=== PATIENT | male | born 1945 | race Caucasian/White ===

== ENCOUNTER 2018-03-04 07:57 | Day surgery (SDC) | payer MEDICARE ==
--- NOTE | 2018-02-16 16:16 | HP ---
CC: Dr. Facundo Paulson * ADMITTING HISTORY AND PHYSICAL: DATE OF ADMISSION: 03/04/18 ADMITTING DIAGNOSES: 1. Hematuria. 2. Multiple large bladder calculi. PLANNED PROCEDURE: Cystoscopy, fragmentation, and removal of bladder calculi, possible laser. SURGEON: Dr. Harvey. HISTORY OF PRESENT ILLNESS: Rene Thompson is a 72-year-old gentleman, who has had episodes of gross hematuria off and on for the last 2 years. He was evaluated and on cystoscopy was noted to have a markedly enlarged prostate especially the median lobe. In the bladder, he had multiple large bladder calculi, probably 8 to 10 in number. Because of the extremely large stone burden, I have explained to him that he may require 2 sessions to completely rid the bladder of stones. He is now being brought in for fragmentation and removal of the bladder calculi. I have also started him on Proscar 5 mg a day to try to reduce the prostate size. PAST MEDICAL HISTORY: Significant for: 1. Ulcerative colitis. 2. Diabetes mellitus. 3. Erectile dysfunction. PAST SURGICAL HISTORY: Significant for tonsillectomy. MEDICATIONS ON ADMISSION: 1. Metformin 500 mg daily. 2. Cialis 5 mg every other day. 3. Lisinopril/hydrochlorothiazide 10/12.5 one tablet daily. 4. Lialda 1.2 g 2 tablets daily. 5. Vitamins and supplements. 6. In addition, he is now on finasteride 5 mg daily. ALLERGIES: No known drug allergies. SOCIAL HISTORY: Smoking history: He is a former smoker, who quit in 1979 with a 70-khtk-ehbe smoking history. REVIEW OF SYSTEMS: He denies any chest pain or shortness of breath. He is still fairly active. PHYSICAL EXAMINATION GENERAL: Reveals a pleasant, healthy-appearing gentleman. VITAL SIGNS: Blood pressure is 112/70, pulse 90 per minute and regular, oxygen saturation 97% on room air. LUNGS: Clear bilaterally. CARDIOVASCULAR: Regular rate and rhythm. S1, S2. ABDOMEN: Soft without masses. IMPRESSION: A 72-year-old gentleman with multiple large bladder calculi. PLAN: The planned procedure is cystoscopy, fragmentation and removal of bladder calculi and possible laser. Because of the large stone burden, he may require this to be a staged procedure with removal of some of the calculi on this occasion and possibly a repeat in 3 to 4 weeks if needed. [id number]/CPS #: [id number] [facility]ENTERJadyn
[~2018-03-04 07:57] MED LIST: Buffered Lidocaine 0.9% SYRIN* 5 ML/SYR SYRINGE INTRADERM ONE; Gentamicin ADULT (*) 160 MG in NS 0.9% 100 ML* 100 ML IVPB ONE; cefTRIAXone(*) 2 GM ADDV.VIAL IVPB ONE
[2018-03-04] MEDS ORDERED: Famotidine IV* 10 MG/ML 2 ML (20 mg) ONE (08:12)
[2018-03-04] MEDS ORDERED: Midazolam* 1 MG/ML 2 ML VIAL (2 MG) ONE (08:12)
[2018-03-04] MEDS ORDERED: fentaNYL* 50 MCG/ML 2 ML VIAL (100 MCG VIAL) ONE (08:12)
[2018-03-04] MEDS ORDERED: Lidocaine 2% PF * 5 ML VIAL ONE (09:14)
[2018-03-04] MEDS ORDERED: Ketorolac INJ* 30 MG/ML 1 ML VIAL ONE (09:16)
[2018-03-04] MEDS ORDERED: Dexamethasone IV* 4 MG/ML 1 ML (4 MG) ONE (09:16)
[2018-03-04] MEDS ORDERED: Propofol* 10 MG/ML 20 ML BTL IV PUSH ONE (09:16)
[2018-03-04] MEDS ORDERED: HYDROmorphone INJ* 0.5 MG/0.5 ML SYRINGE IV PRN (09:37)
[2018-03-04] MEDS ORDERED: Ondansetron INJ* 2 MG/ML VIAL IV PRN (09:37)
[2018-03-04] MEDS ORDERED: DiMENhydriNATE IV* 50 MG/ML VIAL IV PUSH PRN (09:37)
[2018-03-04] MEDS ORDERED: Acetaminophen TAB* 325 MG PO PRN (09:37)
[2018-03-04] MEDS ORDERED: diPHENhydraMINE IV* 50 MG/ML 1 ml VIAL (BENADRYL) IV PRN (09:37)
[2018-03-04] MEDS ORDERED: Nalbuphine* 10 MG/ML 1 ML VIAL IV PRN (09:37)
[2018-03-04] MEDS ORDERED: Naloxone* 0.4 MG/ML 1 ML VIAL IV PRN (09:37)
[2018-03-04] MEDS ORDERED: HYDROcodone/ACETAMIN 5-325 MG* 1 TAB PO PRN ×2 (09:37)
[2018-03-04] MEDS ORDERED: PROCHLORPERAZINE INJ 5 MG/ML 2 ML VIAL IV PRN (09:37)
[2018-03-04] MEDS ORDERED: fentaNYL* 50 MCG/ML 2 ML VIAL (100 MCG VIAL) IV PRN (09:37)
[2018-03-04] MEDS ORDERED: Furosemide IV* 10 MG/ML 2 ML VIAL (20 MG) ONE ×2 (10:03→10:57)
[2018-03-04] MEDS ORDERED: oxyCODONE/Acetamin 5/325 MG* TAB ONE (11:16)
[2018-03-04 13:51] VITALS: BP 138/96
--- NOTE | 2018-03-05 04:24 | OP ---
CC: Dr. Facundo Paulson * DATE OF OPERATION: 03/04/18 - [facility] DATE OF : 49 SURGEON: Bry Harvey MD ANESTHESIOLOGIST: Dr. Martínez ANESTHESIA: General. PRE-OP DIAGNOSES: 1. Multiple large bladder calculi. 2. Prostate enlargement. POST-OP DIAGNOSES: 1. Multiple large bladder calculi. 2. Prostate enlargement. OPERATIVE PROCEDURE: 1. Cystoscopy. 2. Laser lithotripsy of bladder calculi and fragmentation and removal of bladder calculi. COMPLICATIONS: None. OPERATIVE FINDINGS: 1. Markedly enlarged prostate. 2. Multiple large bladder calculi. CATHETER: 22-[place] Wren. BLOOD LOSS: Approximately less than 50 cc. POSTOPERATIVE CONDITION: Stable. INDICATIONS: Rene Thompson is a 72-year-old gentleman who was evaluated and noted to have multiple large bladder calculi. He is now being brought in for treatment of the same. DESCRIPTION OF PROCEDURE: After induction of general anesthesia, the patient was placed in dorsal lithotomy position. Sequential compression devices were in place and functioning. Initial cystoscopy revealed mild stricture at the urethral meatus, which was carefully dilated. The remainder of the urethra was unremarkable. The prostate was markedly enlarged, especially the median lobe. The bladder was examined. It was difficult to visualize the bladder mucosa because of the presence of multiple large bladder calculi. Using the 1000 micron holmium laser fiber, a lot of the larger stones were fragmented with laser lithotripsy. Next, the stone crushing forceps was introduced and a lot of the additional stones and the pieces of the larger stones were then broken up into multiple small fragments. Ellik evacuator was used to try to remove all the fragments from the bladder, which was successfully done. At the end of the procedure, there were no sizable fragments remaining and a 22-[place] Wren was introduced without difficulty and connected to a drainage bag. The patient tolerated the procedure satisfactorily and was transferred back to the recovery area in stable condition. He will require close followup as he is still at continued risk for recurrent stone formation because of the very large prostate. [id number]/[facility] #: [id number] [facility]
== END 2018-03-04 13:40 | disposition home or self-care (01) ==
LOC: OR 07:57
PROVIDERS: ATTEND Urology
DX: N21.0 Calculus in bladder (principal); R31.0 Gross hematuria; E11.9 Type 2 diabetes mellitus without complications; Z79.84 Long term (current) use of oral hypoglycemic drugs; K51.90 Ulcerative colitis, unspecified, without complications; N52.9 Male erectile dysfunction, unspecified; Z87.891 Personal history of nicotine dependence; I10 Essential (primary) hypertension; Z85.828 Personal history of other malignant neoplasm of skin
CPT/HCPCS: 82365; 88300; A9270-GY; J0696; J1100; J1580; J1885; J1940; J2250; J2704; J3010

== ENCOUNTER 2018-04-27 00:45 | Emergency (ER) | payer MEDICARE ==
[2018-04-27] MEDS ORDERED: Glucagon* 1 MG VIAL IV ONE (01:20)
--- NOTE | 2018-04-27 01:26 | ED ---
GI/ HPI - HPI Summary HPI Summary: This patient is a 72 year old M presenting to [facility] accompanied by his with a chief complaint of a possible esophageal obstruction. Pt states he was eating a piece of steak at 2230 when it became lodged in his throat. This has happened in the past and usually he gives it a bit of time and it passes. The patient rates the pain 0/10 in severity. Symptoms aggravated by swallowing. Patient reports inability to drink fluids. When he drinks fluid he has to vomiting it back up. Pts states that he threw his head back, passed out, began foaming at the mouth, and vomited. She states this happens when he eats beef sometimes and she has seen it 5-6 times in the past. - History of Current Complaint Chief Complaint: EDGeneral Time Seen by Provider: 04/27/18 01:09 Stated Complaint: THROAT PAIN Hx Obtained From: Patient Onset/Duration: Started Hours Ago, Still Present Timing: Constant Severity: Moderate Current Severity: Moderate Pain Intensity: 0 Location of Pain: None Associated Signs and Symptoms: Positive: Other: - head back, passed out, began foaming at the mouth, and vomited. - Allergy/Home Medications Allergies/Adverse Reactions: Allergies Allergy/AdvReac Type Severity Reaction Status Date / Time monosodium glutamate Allergy Intermediate Swelling Verified 04/27/18 00:52 Of Face,Lips,& Throat PMH/Surg Hx/FS Hx/Imm Hx Endocrine/Hematology History: Reports: Hx Diabetes - Pre Diabetic - on Metformin Cardiovascular History: Reports: Hx Hypertension - on medication Denies: Other Cardiovascular Problems/Disorders Respiratory History: Denies: Other Respiratory Problems/Disorders GI History: Reports: Other GI Disorders - Ulcerative Colitis History: Reports: Other Problems/Disorders - Bladder stones, Erectile Dysfunction, Enlarged prostate Musculoskeletal History: Reports: Hx Arthritis - knees, neck and left shoulder Denies: Other Musculoskeletal History Sensory History: Reports: Hx Cataracts - Bilateral-removed 2012, Hx Contacts or Glasses - Reading glasses Denies: Hx Hearing Aid Opthamlomology History: Reports: Hx Cataracts - Bilateral-removed 2012, Hx Contacts or Glasses - Reading glasses Neurological History: Denies: Other Neuro Impairments/Disorders - Surgical History Surgery Procedure, Year, and Place: Bilateral cataract removal with lens implants 2012 Hx Anesthesia Reactions: No Infectious Disease History: No Infectious Disease History: Denies: History Other Infectious Disease, Traveled Outside the [place] in Last 30 Days - Family History Known Family History: Negative: Blood Disorder - Social History Alcohol Use: Daily Alcohol Amount: 4-5 beers Substance Use Type: Reports: None Smoking Status (MU): Former Smoker Amount Used/How Often: 2 ppd for 14 years Review of Systems Gastrointestinal: Other - foaming at the mouth Positive: Vomiting, Other - feeling of something being stuck in his throat Positive: Syncope All Other Systems Reviewed And Are Negative: Yes Physical Exam - Summary Physical Exam Summary: Appearance: Well-appearing, Well-nourished, lying in bed comfortable Skin: Warm, dry, no obvious rash Eyes: sclera anicteric, no conjunctival pallor ENT: mucous membranes moist Neck: deferred Respiratory: No signs of respiratory distress Cardiovascular: Appears well perfused, pulses are nml Abdomen: deferred Musculoskeletal: Moving all 4 extremities without obvious discomfort Neurological: Awake and alert, mentation is normal, speech is fluent and appropriate Psychiatric: affect is normal, does not appear anxious or depressed Triage Information Reviewed: Yes Vital Signs On Initial Exam: Initial Vitals Temp Pulse Resp BP Pulse Ox 98.2 F 72 18 159/80 96 04/27/18 00:49 04/27/18 00:49 04/27/18 00:49 04/27/18 00:49 04/27/18 00:49 Vital Signs Reviewed: Yes Diagnostics - Vital Signs Vital Signs Temp Pulse Resp BP Pulse Ox 04/27/18 00:49 98.2 F 72 18 159/80 96 - Laboratory Lab Statement: Any lab studies that have been ordered have been reviewed, and results considered in the medical decision making process. GIGU Course/Dx - Course Assessment/Plan: This patient is a 72 year old M presenting to [facility] accompanied by his with a chief complaint of a possible esophageal obstruction. Pt states he was eating a piece of steak at 2230 when it became lodged in his throat. This has happened in the past and usually he gives it a bit of time and it passes. The patient rates the pain 0/10 in severity. Symptoms aggravated by swallowing. Patient reports inability to drink fluids. When he drinks fluid he has to vomiting it back up. Pts states that he threw his head back, passed out, began foaming at the mouth, and vomited. She states this happens when he eats beef sometimes and she has seen it 5-6 times in the past. Dr Piedra has seen the patient in the ED. He was able to dislodge the piece of meat in his throat. In the ED course the patient was given Glucagen. Patient will be discharged and follow up from PCP. The patient is agreeable with this plan - Diagnoses Provider Diagnoses: Esophageal foreign body - Physician Notifications Discussed Care Of Patient With: Arnaud Piedra Time Discussed With Above Provider: 01:24 Instructed by Provider To: Other - He has agreed to come see the patient in the ED, with his endoscopy team Discharge - Sign-Out/Discharge Documenting (check all that apply): Patient Departure - Discharge Plan Condition: Improved Disposition: HOME Patient Education Materials: Esophageal Foreign Body (ED) Referrals: Arnaud Piedra MD [Medical Doctor] - - Billing Disposition and Condition Condition: IMPROVED Disposition: Home - Attestation Statements Document Initiated by Raulibe: Yes Documenting Scribe: Rj Wong Provider For Whom Scribe is Documenting (Include Credential): Vincent Quijano MD Scribe Attestation: Rj Galeano , scribed for Vincent Quijano MD on 04/30/18 at 1820. Scribe Documentation Reviewed: Yes Provider Attestation: The documentation as recorded by the Rj crook accurately reflects the service I personally performed and the decisions made by me, Vincent Quijano MD
[2018-04-27 02:18] VITALS: BP 150/96
--- NOTE | 2018-04-27 04:38 | CONS ---
CONSULTATION REPORT: DATE OF CONSULT: 04/26/18 - EMERGENCY DEPT INDICATION: Esophageal foreign body. The emergency room physician called me at approximately 1:25 in the morning, on Friday morning with the patient complained of food being stuck, unable to swallow water. I came in immediately. The patient is a pleasant 72-year-old gentleman who has had an esophageal foreign bodies in the past. He states that every time he has been able to relieve them himself by usually vomiting. At this time, he was eating steak and around 10:30 tonight it became stuck. He was unable to get it dislodged, came into the emergency room. He was unable to swallow saliva or water. He was given glucagon. When I went into see him, he states that it felt like the obstruction relieved just as I was walking in the room. He states that he felt much better in his esophagus. I did give him 2 glasses of water. Each was approximately 10 ounces. He was able to swallow both of them with no issue at all. He denies any chest pain, shortness of breath or any symptoms at all right now. PAST MEDICAL HISTORY: Significant for diabetes, hypertension, bladder stone. PAST SURGICAL HISTORY: Include cystoscopy. ALLERGIES: MONOSODIUM GLUTAMATE. SOCIAL HISTORY: He does drink alcohol. He does smoke. I counseled him against smoking. REVIEW OF SYSTEMS: Twelve-systems were reviewed, other than that mentioned in the HPI were unremarkable. PHYSICAL EXAM: On physical exam, vital signs are stable, 98.2 for temperature. Blood pressure 159/80, pulse of 72, respiratory rate of 18, O2 sat of 96%. General: A well-appearing male, in no apparent distress. Alert, oriented, pleasant, and fluent. HEENT: Mucous membranes are moist without lesions, ulcers, or exudate. Neck is supple. Trachea is midline. Head is normocephalic , atraumatic. Heart: Regular rate and rhythm. Lungs: Clear to auscultation. Abdomen: Obese, positive bowel sounds, soft, nondistended. No hepatosplenomegaly, masses, rebound or guarding. Skin: Warm and dry. ASSESSMENT AND PLAN: This is a pleasant 72-year-old gentleman with dysphagia who had an esophageal foreign body. It has now been relieved, it may have been just due to time or the glucagon. He is able to swallow 20 ounces of water. At this point, he can be discharged from the emergency room. I told him that he definitely needs to have an outpatient endoscopy. We went out for all the possible causes of esophageal dysphagia including, but not limited to malignancy. He is understanding and agreeable. He will make an outpatient evaluation to have his endoscopy performed. [id number]/CPS #: [id number] MTDD
== END 2018-04-27 02:35 | disposition home or self-care (01) ==
LOC: ED 00:45
DX: T18.128A Food in esophagus causing other injury, initial encounter (principal); X58.XXXA Exposure to other specified factors, initial encounter; Y92.9 Unspecified place or not applicable
CPT/HCPCS: 99283; J1610

== ENCOUNTER 2019-08-25 05:53 | Observation (INO) | payer OTHER ==
--- NOTE | 2019-08-19 18:47 | HP ---
CC: Dr. Facundo Paulson; Dr. Garcia, [facility], [place], [place] * ADMITTING HISTORY AND PHYSICAL: DATE OF ADMISSION: 08/25/19 ADMITTING DIAGNOSES: 1. Multiple recurrent bladder calculi. 2. Benign prostatic hypertrophy. PLANNED PROCEDURES: 1. Cystoscopy. 2. Fragmentation and removal of bladder calculi. SURGEON: Dr. Harvey. HISTORY OF PRESENT ILLNESS: Rene Thompson is a 73-year-old gentleman with a history of recurrent bladder calculi and BPH. He had successfully undergone treatment of bladder calculi in February of 2018 and has been on finasteride 5 mg daily for treatment of BPH. He has been doing fairly well and even though he has been emptying his bladder reasonably well. He still developed multiple recurrent bladder calculi and is now being brought in for treatment of the same. PAST MEDICAL HISTORY: Significant for: 1. Bladder calculi. 2. BPH. 3. Ulcerative colitis. 4. Prediabetes. 5. Hypertension. PAST SURGICAL HISTORY: Significant for fragmentation and removal of bladder calculi in February of 2018 and tonsillectomy. MEDICATIONS ON ADMISSION: 1. Lialda 1.2 g twice a day. 2. Lisinopril 10/12.5 daily. 3. Metformin 500 mg a day. 4. Proscar 5 mg a day. 5. Omeprazole 40 mg a day. 6. Cialis p.r.n. ALLERGIES: No known drug allergies. FAMILY HISTORY: Noncontributory. SOCIAL HISTORY: Smoking History: He is a former smoker, who quit in 1980 with about a 20- to 30-pack year smoking history prior to that. REVIEW OF SYSTEMS: He is otherwise in excellent health. He denies any chest pain or shortness of breath. PHYSICAL EXAMINATION GENERAL: Reveals a pleasant healthy-appearing gentleman. VITAL SIGNS: Blood pressure is 122/74, pulse 87 per minute and regular, temperature 97, oxygen saturation 94% on room air. LUNGS: Clear bilaterally. Cardiovascular: Regular rate and rhythm. S1, S2. ABDOMEN: Soft without masses. IMPRESSION: A 73-year-old gentleman with recurrent multiple bladder calculi. PLAN/RECOMMENDATIONS: Planned procedure is cystoscopy, fragmentation, and removal of bladder calculi. [id number]/[facility] #: [id number] [facility]
[~2019-08-25 05:53] MED LIST changes: -Buffered Lidocaine 0.9% SYRIN* 5 ML/SYR SYRINGE INTRADERM ONE; +Buffered Lidocaine 1% SYRIN* 1 ML/SYRINGE INTRADERM ONE; -Gentamicin ADULT (*) 160 MG in NS 0.9% 100 ML* 100 ML IVPB ONE; -cefTRIAXone(*) 2 GM ADDV.VIAL IVPB ONE
[2019-08-25] MEDS ORDERED: Lactated Ringers 1000 ML Bag* 1,000 ML IV SCH (06:00)
[2019-08-25] MEDS ORDERED: cefTRIAXone(*) 2 GM ADDV.VIAL IVPB ONE (06:37)
[2019-08-25] MEDS ORDERED: Gentamicin ADULT (*) 160 MG in NS 0.9% 100 ML* 100 ML IVPB ONE (07:00)
[2019-08-25] MEDS ORDERED: Lidocaine 2% PF * 5 ML VIAL ONE (07:20)
[2019-08-25] MEDS ORDERED: Propofol* 10 MG/ML 20 ML BTL ONE (07:20)
[2019-08-25] MEDS ORDERED: Midazolam* 1 MG/ML 2 ML VIAL (2 MG) ONE (07:21)
[2019-08-25] MEDS ORDERED: fentaNYL* 50 MCG/ML 2 ML VIAL (100 MCG VIAL) ONE (07:21)
[2019-08-25] MEDS ORDERED: Phenylephrine 40 MCG/ML SYRINGE ONE (07:52)
[2019-08-25] MEDS ORDERED: Atropine 1MG/ML INJ* 1 ML VIAL ONE (08:40)
[2019-08-25] MEDS ORDERED: Naloxone* 0.4 MG/ML 1 ML VIAL IV PRN (08:42)
[2019-08-25] MEDS ORDERED: fentaNYL* 50 MCG/ML 2 ML VIAL (100 MCG VIAL) IV PRN (08:42)
[2019-08-25] MEDS ORDERED: Acetaminophen TAB* 325 MG PO PRN ×2 (08:42→11:42)
[2019-08-25] MEDS ORDERED: oxyCODONE TAB* 5 MG TAB PO PRN (08:42)
[2019-08-25] MEDS ORDERED: DiMENhydriNATE IV* 50 MG/ML VIAL IV PUSH PRN (08:42)
[2019-08-25] MEDS ORDERED: Ketorolac INJ* 30 MG/ML 1 ML VIAL ONE (08:52)
[2019-08-25] MEDS ORDERED: Metoclopramide IV* 5 MG/ML 2 ML VIAL ONE (08:52)
[2019-08-25] MEDS ORDERED: Ondansetron INJ* 2 MG/ML VIAL ONE (08:52)
[2019-08-25] MEDS ORDERED: Furosemide IV* 10 MG/ML 2 ML VIAL (20 MG) ONE ×2 (09:05→09:52)
[2019-08-25 09:57] LABS: BUN/Creatinine Ratio 15.5 (8-20); Calcium 8.9 mg/dL (8.6-10.3); EGFR African American 86.1 (>60); EGFR Non-African American 71.2 (>60); Magnesium 1.3 mg/dL (1.9-2.7); Potassium 4.3 mmol/L (3.5-5.0)
[2019-08-25] MEDS ORDERED: Rocuronium* 10 MG/ML VIAL ONE (10:48)
[2019-08-25] MEDS ORDERED: Sugammadex * 500 MG/5 ML VIAL IV PUSH ONE (10:52)
[2019-08-25] MEDS ORDERED: Magnesium Sulfate 3 GM IV IVPB ONE ×2 (11:00)
[2019-08-25 11:09] LABS: Troponin I 0.01 ng/mL (<0.03)
[2019-08-25] MEDS ORDERED: Temazepam CAP* 15 MG PO PRN (11:42)
[2019-08-25] MEDS ORDERED: Metoprolol Tartrate TAB* 25 MG PO SCH (12:00)
--- NOTE | 2019-08-25 13:50 | HP ---
CC: Dr. Paulson; Dr. Harvey; Dr. Morales; Dr. Price, Anesthesia * HISTORY AND PHYSICAL: DATE OF ADMISSION: 08/25/19 PRIMARY CARE PROVIDER: Dr. Paulson. CHIEF COMPLAINT: The patient was noted to have paroxysmal atrial fibrillation intraoperatively. HISTORY OF PRESENT ILLNESS: Rene Thompson is a 73-year-old male with history of hypertension, impaired glucose tolerance, BPH, as well as bladder calculi. The patient was today having an outpatient procedure of cystoscopy for his bladder calculi with Dr. Harvey. Intraoperatively, Dr. Price noted that the patient was noted to be in new atrial fibrillation, which occurred intraoperatively. Then, he was hypotensive and treated briefly with phenylephrine. Then, he became bradycardic, then atropine was administered and then he converted to sinus rhythm. The patient is going to be placed on overnight observation with a diagnosis of transient atrial fibrillation. The patient himself stated that he has not had any problems with his heart all of his life. He denies dyspnea on exertion, palpitations, or any cardiac issues in the past. He has not had any chest pain. PAST MEDICAL HISTORY: 1. Hypertension. 2. BPH. 3. Bladder calculi. 4. Prediabetes. 5. Ulcerative colitis. PAST SURGICAL HISTORY: Status post tonsillectomy. MEDICATION LIST: Home medications would be: 1. Metformin 500 mg daily. 2. Cialis on a p.r.n. basis. 3. Omeprazole 20 mg daily. 4. Mesalamine, which the brand name is Lialda 1.2 g tablets, the patient takes 2 tablets daily. 5. Lisinopril with hydrochlorothiazide 12.5 one tablet daily. 6. Glucosamine with chondroitin 1 tablet daily. 7. Proscar 5 mg a day. 8. Vitamin D 2000 units daily. 9. Vitamin B12 p.o. weekly. ALLERGIES: MONOSODIUM GLUTAMATE. FAMILY HISTORY: Mother who of lung cancer at the age of 63. Father with esophageal cancer, of it at the age of 53. SOCIAL HISTORY: The patient drinks 3 to 4 beers and 3 shots of vodka or other hard liquor a day. He is currently retired. Lives with his , Emelina Thompson, who is his surrogate. He has history of smoking 20-pack years and quit in 1980. He denies any drug use. REVIEW OF SYSTEMS: Please see history of present illness. All the remaining 12 systems were reviewed with the patient and were otherwise negative. PHYSICAL EXAMINATION GENERAL: The patient is a very pleasant 73-year-old male, who is in no acute distress. The patient is alert and oriented x3. VITAL SIGNS: Blood pressure of 130/83, heart rate of 72 and regular, respiratory rate 16, oxygen saturation 91% on room air, temperature of 96.8. HEENT: Head: Atraumatic, normocephalic. Eyes: Pupils are equal, reactive to light and accommodation. Oropharynx is clear. Mucosa moist. NECK: Supple. No JVD. No bruits bilaterally. RESPIRATORY: Clear to auscultation bilaterally. CARDIOVASCULAR: Regular rate and rhythm. No murmur. ABDOMEN: Soft, nontender. Bowel sounds are present in all 4 quadrants. EXTREMITIES: There is no edema. Pulses are +2 bilaterally. No clubbing or cyanosis. NEUROLOGIC: Speech is clear. Cranial nerves II through XII grossly intact. Motor strength is 5/5 bilaterally. Please note that the patient has a Wren catheter in place with urine tinged with blood in the Wren bag. DIAGNOSTIC STUDIES/LAB DATA: White blood cell count of 7.8, hemoglobin of 17.7 , hematocrit of 50, MCV of 99, and platelets of 184. Sodium was 133, potassium 4.3, chloride 98, carbon dioxide 27, BUN 16, creatinine 1.03, and magnesium of 1.3. The patient's EKG showed normal sinus rhythm with heart rate of 86 beats per minute with no ST changes. There was no old EKG available for comparison. ASSESSMENT AND PLAN: 1. Transient episode of atrial fibrillation that happened intraoperatively when the patient was under general anesthesia for cystoscopy. At this point, the patient was noted to have hypomagnesemia with magnesium level of 1.3, probably due to his history of beer drinking. At this point, the patient received already 3 g of magnesium sulfate IV postoperatively and he is going to be placed on magnesium oxide oral supplementation. We will check magnesium in the morning. I will also obtain a transthoracic echocardiogram to evaluate the patient's EF as well as TSH. I will take the patient off his blood pressure medication and start him on low-dose beta-kathleen with Lopressor at 12.5 mg twice a day. Dr. Morales was consulted on the case. 2. In regards to the patient's ulcerative colitis, the patient stated that after he was diagnosed with ulcerative colitis many years ago he was placed on Lialda and has had no problems ever since. His mesalamine is going to be continued. 3. For his impaired glucose tolerance, the patient is going to be placed on diabetic diet. He is only on small dose of metformin on a daily basis. I do not believe he needs fingersticks measured at this point. 4. For DVT prophylaxis, the patient is going to be placed on heparin subcutaneously. 5. The patient's code status is full. His surrogate is his . TIME SPENT: Approximately 65 minutes was spent on admission of this patient, more than half that time was spent [id number] with the patient during the interview and physical exam. [id number]/[facility] #: [id number] MTDJadyn
[2019-08-25] MEDS ORDERED: Heparin VIAL(*) 5000 UNITS/ML VIAL (FIVE THOUSAND) SUBCUT SCH (14:00)
[2019-08-25] MEDS: Magnesium Oxide TAB* 400 MG PO SCH (14:22)
[2019-08-25 14:28] LABS: Albumin 3.8 g/dL (3.2-5.2); Albumin/Globulin Ratio 1.4 (1-3); Globulin 2.8 g/dL (2-4); Total Bilirubin 0.7 mg/dL (0.2-1.0); Total Protein 6.6 g/dL (6.4-8.9)
[2019-08-25] MEDS ORDERED: Thiamine IV 100 MG, Folic Acid IV* 1 MG, Multiple Vitamin IV ADULT* 10 ML in NS 0.9% 10... IV ONE (15:00)
[2019-08-25 15:06] LABS: BUN/Creatinine Ratio 15.1 (8-20); Calcium 8.8 mg/dL (8.6-10.3); EGFR African American 83.3 (>60); EGFR Non-African American 68.9 (>60); Potassium 4.2 mmol/L (3.5-5.0)
--- NOTE | 2019-08-25 15:22 | CONS ---
CC: Dr. Jaxon Morales; Dr. Paulson CARDIOLOGY CONSULTATION: DATE OF CONSULT: 08/25/19 CONSULTING PHYSICIAN: Dr. Rivera. REASON FOR EVALUATION: PVCs and AFib. HISTORY OF PRESENT ILLNESS: This is a 73-year-old gentleman with history of glucose intolerance, hypertension, and significant alcohol use, who was admitted for multiple recurrent bladder calculi and cystoscopy, fragmentation and removal of bladder calculi. During the procedure, he apparently developed PVCs and then a brief episode of AFib with bradycardia. He was given atropine and converted back to sinus rhythm. Because of those findings, he was admitted. The patient was noted to have a magnesium of 1.3, negative troponin. He denies previous rheumatic heart disease, murmurs, AFib, palpitations, syncope, or near syncope. 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 He does not do any regular prolonged exercise or routine exercise. He does consume 4 beers a day and 2 mixed drinks a day. He denies any withdrawal seizures or blackouts. He denies any strokes or mini strokes. PAST MEDICAL HISTORY: Includes bladder calculi first detected a year ago when he had hematuria, BPH, ulcerative colitis, prediabetes, hypertension, obesity, alcoholism. PAST SURGICAL HISTORY: Includes cataracts, fragmentation and removal of bladder calculi in February of 2018, and removal of a basal cell carcinoma from his left shoulder. MEDICATIONS: His medications as an outpatient include: 1. Lialda 1.2 g twice a day. 2. Lisinopril/HCTZ 10/12.5 a day. 3. Metformin 500 mg a day. 4. Proscar 5 mg a day. 5. Omeprazole 40 mg a day. 6. Cialis 2.5 mg p.r.n. 7. Glucosamine/chondroitin 1 cap q.a.m. 8. Vitamin D 2000 units daily. 9. B12 tabs 1 tablet weekly. As an inpatient, he is also on: 1. P.r.n. acetaminophen. 2. Mag oxide 800 mg daily. 3. Metoprolol tartrate 12.5 mg q.12. 4. Oxycodone 5 mg p.o. once p.r.n. 5. Protonix 40 mg a day. 6. Temazepam 15 mg at bedtime. ALLERGIES: Include MSG with hives. He denies any drug allergies. FAMILY HISTORY: His mother of lung cancer at 63. Father of esophageal cancer at 53. He has 1 brother and 1 sister, who are alive without coronary artery disease. SOCIAL HISTORY: He has a history of tobacco use, discontinued in 1980. He drinks 1 to 2 cups of caffeinated tea a day. He is . He has 2 adult children. REVIEW OF SYSTEMS: He denies orthopnea, PND, syncope, or near syncope. No strokes or mini strokes. Review of systems x14 was negative except as above. PHYSICAL EXAM: He is a well-developed, well-nourished, obese gentleman, in no apparent distress. Blood pressure 148/88, O2 sats 94%, heart rate of 68. No significant JVD. Carotids 2+ without bruits. No cervical adenopathy. No thyromegaly. Atraumatic, normocephalic. Extraocular muscles intact. Cardiac Exam: S1, S2 without murmurs, gallops, or rubs. Chest: Decreased breath sounds, prolonged expiratory phase. No CVAT. Abdomen: Obese. No hepatosplenomegaly. Femoral pulses intact without bruits. Distal pulses diminished, but present. No edema. Motor strength 5/5 bilaterally. Deep tendon reflexes 2/4. Alert and oriented x3. DIAGNOSTIC STUDIES/LAB DATA: Labs include sodium of 133, potassium of 4.3, BUN of 16, creatinine of 1, glucose of 175, magnesium of 1.3. Troponin of 0.01. TSH is pending. White count from 08/13/19 was 7.8 with hematocrit of 50, MCV of 99, platelet count of 184. INR of 0.9 on 11/20/17. EKG revealed sinus rhythm with low voltage. No prior EKG for comparison. IMPRESSION AND PLAN: My impression is that Mr. Thompson had episode of premature ventricular contractions, atrial fibrillation, and hypotension during moderate sedation in the setting of hypomagnesemia and significant alcohol use. I did discuss with the patient the potential etiologies for his premature ventricular contractions and atrial fibrillation including alcoholic cardiomyopathy, alcohol toxicity, hypomagnesemia, and ischemic heart disease. He also may have some degree of chronic obstructive pulmonary disease or sleep apnea. For the time being, I would recommend the followin. We would replace his electrolytes as you are doing. 2. We would check B12, folic acid and supplement. We would administer thiamine. 3. We would watch for alcohol withdrawal. 4. We would continue control of his diabetes and blood pressure. 5. We would suggest weight reduction. 6. His CHADS-VASc2 score is 3. 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 He would like to decline anticoagulation for now understanding the risk and we will consider restarting an aspirin 81 mg a day when permitted by surgery. 7. I asked him to decrease his alcohol intake. 8. We would obtain an echo to evaluate for LV dysfunction. 9. We will obtain a stress test to evaluate for ischemic heart disease. 10. If his rhythm remains stable and his workup is negative, we could then probably consider discharge tomorrow. 11. Further recommendations will depend on his clinical course. 12. We would also consider screening for abdominal aneurysm with an ultrasound electively given his history of hypertension, tobacco use and his age. d/w Dr. Rivera. [id number]/[facility] #: [id number] GSU
--- NOTE | 2019-08-25 16:36 | OP ---
CC: Dr. Facundo Paulson * DATE OF OPERATION: 08/25/19 - ROOM #447 DATE OF : 49 SURGEON: Bry Harvey MD. ANESTHESIOLOGIST: Dr. Price. ANESTHESIA: General. PRE-OP DIAGNOSES: 1. Multiple large bladder calculi. 2. Prostate enlargement. POST-OP DIAGNOSES: 1. Multiple large bladder calculi. 2. Prostate enlargement. OPERATIVE PROCEDURE: 1. Cystoscopy. 2. Laser lithotripsy of multiple bladder calculi. 3. Fragmentation and removal of multiple bladder calculi. COMPLICATIONS: None. SPECIMEN: Fragments of bladder calculi. CATHETER: 24-British Wren. INDICATIONS: Rene Thompson is a 73-year-old gentleman with a history of prostate enlargement and recurrent bladder calculi. FINDINGS: 1. Significantly enlarged prostate. 2. Multiple large bladder calculi. POSTOPERATIVE CONDITION: Stable. DESCRIPTION OF PROCEDURE: After induction of general anesthesia, the patient was placed in dorsal lithotomy position. Sequential compression devices were in place and functioning. Initial cystoscopy revealed a normal-appearing urethra (there was a mild stricture at the meatus, which was dilated). The prostate was significantly enlarged and obstructing. The bladder was examined. There were multiple (5 to 6 at least) large bladder calculi noted. Initially, I used a 1000 micron Holmium laser fiber to start fragmenting some of the larger calculi. Once this was done, I was able to use the stone crushing forceps and start fragment in the calculi into smaller pieces which were then [facility] out [facility]. At the end of the procedure, there were no sizeable pieces remaining and hemostasis appeared satisfactory. A 24-British Wren catheter was introduced for bladder drainage. The patient tolerated the procedure satisfactorily and was transferred back to the recovery area in stable condition. [id number]/[facility] #: [id number] [facility] CENTERJadyn
[2019-08-25] MEDS: Lisinopril TAB* 10 MG PO SCH ×2 (17:02→17:04)
--- NOTE | 2019-08-25 17:58 | ECHO ---
*[facility]* [place] [address] Fax #: [phone] Transthoracic Echocardiogram (Report amended [id number]) Patient: Rene Thompson : 1945 Study Date: 08/25/2019 Age: 73 Gender: M HR: 66 bpm Height: 66 in /167.6 cm BSA: 1.92 m^2 Weight: 181.6 lb /82.6 kg BMI: 29.4 kg/m^2 *Molder Machine: Margarette Escobar *Referring Physician: Nikki Vance *Reading Physician: Jaxon Adkins MD Indications: Abnormal EKG. History: Atrial fibrillation. Risk factors: Former tobacco use. Hypertension. Conclusions Summary: - Left ventricle: Systolic function is normal. The estimated ejection fraction is 55-60%. Features are consistent with a pseudonormal left ventricular filling pattern, with concomitant abnormal relaxation and increased filling pressure (grade 2 diastolic dysfunction). - Left atrium: The atrium is dilated. - Right atrium: The atrium is dilated. - Aortic valve: There is trace to mild regurgitation. Study data: Transthoracic echocardiogram. Procedure: Transthoracic echocardiography was performed. Image quality was good. Complete 2D, spectral Doppler, and color flow Doppler. Location: Bedside. Patient status: Inpatient. Patient room number: 447-2. No prior study is available for comparison. Findings Left ventricle: The cavity size is normal. Wall thickness is mildly to moderately increased. Systolic function is normal. The estimated ejection fraction is 55-60%. Wall motion is normal; there are no regional wall motion abnormalities. Features are consistent with a pseudonormal left ventricular filling pattern, with concomitant abnormal relaxation and increased filling pressure (grade 2 diastolic dysfunction). Right ventricle: The cavity size is at the upper limits of normal. Wall thickness is normal. Systolic function is normal. Systolic pressure is within the normal range. Ventricular septum: The outflow septum has a sigmoid appearance. Left atrium: The atrium is dilated. Right atrium: The atrium is dilated. Mitral valve: The valve is structurally normal. There is no evidence of stenosis. There is trace regurgitation. Aortic valve: The valve is structurally normal. The valve is trileaflet. Cusp separation is normal. Transvalvular velocity is within the normal range. There is no evidence of stenosis. There is trace to mild regurgitation. Tricuspid valve: The valve is structurally normal. There is no evidence of stenosis. There is no regurgitation. Pulmonic valve: The valve is structurally normal. There is no evidence of stenosis. There is trace regurgitation. Aorta: The aortic root appears normal. The aortic arch appears normal. Pericardium: There is no significant pericardial effusion. Pulmonary arteries: Systolic pressure is within the normal range, estimated to be 27 mm Hg. Systemic veins: Inferior vena cava: There is (>= 50%) respiratory change in the IVC dimension. Pulmonary veins: The Pulmonary veins appear normal. Measurements Left ventricle Value Ref Aortic valve Value Ref GEORGES, LAX 5.1 cm 4.2 - Peak v, S 1.38 m/sec ----- 5.8 VTI, S 31.3 cm ----- ESD, LAX 3.5 cm 2.5 - Mean grad, S 4.0 mm Hg ----- 4.0 Peak grad, S 8.0 mm Hg ----- FS, LAX 32 % 25 - 43 CHRISTINE, VTI 2.22 cm^2 ----- PW, ED, LAX (H) 1.3 cm 0.6 - CHRISTINE, Vmax 1.85 cm^2 ----- 1.0 FS 32 % 25 - 43 Mitral valve Value Ref Mid-wall FS 14 % -------- Peak E 0.99 m/sec ----- PW, ED (H) 1.3 cm 0.6 - Peak A 0.81 m/sec ----- 1.0 Decel time 216 ms ----- PW/ID, ED 0.25 -------- Peak grad, D 4.0 mm Hg ----- E', lat saundra, TDI (L) 6.5 cm/sec >=10.0 Peak E/A ratio 1.2 ----- E/e', lat saundra, TDI 15 -------- E', med saundra, TDI 7.3 cm/sec >=7.0 Pulmonic valve Value Ref E/e', med saundra, TDI 14 -------- Peak v, S 0.6 m/sec -- --- E', avg, TDI 6.9 cm/sec -------- Peak grad, S 1.0 mm Hg -- --- E/e', avg, TDI 14 <=14 Tricuspid valve Value Ref LVOT Value Ref TR peak v 2.44 m/sec <=2. 8 Diam, S 2.00 cm -------- Peak RV-RA grad, S 24 mm Hg ----- Area 3.1 cm^2 -------- Max TR maryam 2.46 m/sec ----- Peak maryam, S 0.81 m/sec -------- Mean grad, S 1 mm Hg -------- Aortic root Value Ref SV 69 ml -------- Root diam 3.1 cm <4.1 Ventricular septum Value Ref Ascending aorta Value Ref IVS, ED (H) 1.3 cm 0.6 - AAo AP diam, S 3.5 cm ----- 1.0 AAo AP diam/bsa, S 1.8 cm/m^2 ----- Right ventricle Value Ref Aortic arch Value Ref GEORGES, LAX 4.1 cm -------- Arch diam 3.0 cm ----- GEORGES minor ax, A4C (H) 3.7 cm 1.9 - mid 3.5 Decending aorta Value Ref Salvador peak maryam 0.58 m/sec ----- Left atrium Value Ref ML dim, A4C 4.7 cm -------- Inferior vena cava Value Ref SI dim, A4C 7.0 cm -------- Diam 2.3 cm ----- Vol/bsa, ES, 1-p (H) 40 ml/m^2 12 - 37 A4C Vol/bsa, ES, A/L (H) 48 ml/m^2 16 - 34 Right atrium Value Ref SI dim, ES 5.2 cm 3.4 - 5.3 ML dim, ES, A4C 3.6 cm 2.6 - 4.4 SI dim, ES, A4C 5.2 cm 3.4 - 5.3 SI dim/bsa, ES, A4C 2.7 cm/m^2 1.8 - 3.0 Legend: (L) and (H) jim values outside specified reference range. Amended Jaxon Morales MD 08/25/2019 17:58
[2019-08-25] MEDS ORDERED: Pantoprazole TAB * 40 MG TAB PO SCH (18:00)
[2019-08-25 22:16] LABS: TSH (Thyroid Stimulating Horm) 1.35 mcIU/mL (0.34-5.60)
[2019-08-25 22:27] LABS: Folate > 20.00 ng/mL (>3.99)
[2019-08-26 06:35] LABS: ABS Eosinophils 0.1 10^3/ul (0-0.6); ABS Lymphocytes 1.4 10^3/ul (1.0-4.8); ABS Monocytes 0.5 10^3/ul (0-0.8); ABS Neutrophils 5.1 10^3/ul (1.5-7.7); Eosinophil % 0.9 %; Hematocrit 41 % (42-52); Hemoglobin 14.5 g/dL (14.0-18.0); Lymphocyte % 19.7 %; Mean Corpuscular HGB Conc 35 g/dL (31-36); Mean Corpuscular Hemoglobin 34 pg (27-31); Mean Corpuscular Volume 97 fL (80-94); Mean Platelet Volume 9.5 fL (7.4-10.4); Platelet Count 122 10^3/uL (150-450); Red Blood Count 4.21 10^6 /uL (4.18-5.48); Red Cell Distribution Width 13 % (10-15)
[2019-08-26 06:50] LABS: Albumin 3.4 g/dL (3.2-5.2); Albumin/Globulin Ratio 1.6 (1-3); BUN/Creatinine Ratio 14.2 (8-20); Calcium 8.2 mg/dL (8.6-10.3); EGFR African American 63.6 (>60); EGFR Non-African American 52.5 (>60); Globulin 2.1 g/dL (2-4); Indirect Bilirubin 0.6 mg/dL (0.3-1.0); Magnesium 1.9 mg/dL (1.9-2.7); Total Bilirubin 0.8 mg/dL (0.2-1.0); Total Protein 5.5 g/dL (6.4-8.9)
[2019-08-26] MEDS: Magnesium Oxide TAB* 400 MG PO SCH (08:43)
[2019-08-26] MEDS: Lisinopril TAB* 10 MG PO SCH (08:43)
[2019-08-26] MEDS ORDERED: Mesalamine (NF) 1.2 GM TAB PO SCH (09:00)
[2019-08-26] MEDS ORDERED: Finasteride TAB* 5 MG PO SCH (09:00)
[2019-08-26] MEDS ORDERED: NS 0.9% 1000 ML** 1,000 ML IV SCH (10:15)
[2019-08-26 11:33] VITALS: BP 142/80
[2019-08-26 11:38] LABS: BUN/Creatinine Ratio 15.2 (8-20); Calcium 8.4 mg/dL (8.6-10.3); EGFR African American 78.2 (>60); EGFR Non-African American 64.6 (>60); Potassium 3.7 mmol/L (3.5-5.0)
[2019-08-27 00:32] LABS: Interpretation 100% Uric acid
--- NOTE | 2019-08-27 03:11 | DS ---
DISCHARGE SUMMARY: DATE OF ADMISSION: 08/25/19 DATE OF DISCHARGE: 08/26/19 PRIMARY DIAGNOSES: 1. Atrial fibrillation intraoperatively. 2. Hypomagnesemia. 3. Nephrolithiasis with multiple large bladder calculi, status post laser lithotripsy, cystoscopy, fragmentation and removal of multiple bladder calculi. SECONDARY DIAGNOSES: 1. Hypertension. 2. Benign prostatic hyperplasia. 3. Bladder calculi. 4. Prediabetes. 5. Ulcerative colitis. 6. Tonsillectomy. HOSPITAL COURSE: A 73-year-old male with history of hypertension, impaired glucose tolerance, BPH, and multiple bladder calculi came in for an outpatient procedure with Dr. Harvey. Please refer to the operative report by Dr. Harvey for full details. The patient was known to have multiple large bladder calculi and prostate enlargement and the patient is status post cystoscopy, laser lithotripsy, multiple bladder calculi, and fragmentation and removal of multiple bladder calculi on 08/25/19. Intraoperatively, the patient was noted to be in new onset of atrial fibrillation. He was hypotensive and treated briefly with phenylephrine. He became bradycardic, then atropine was administered and he converted to sinus rhythm. The patient was placed on observation overnight with a diagnosis of transient atrial fibrillation for further telemetry monitoring. The patient was also seen by Cardiology, Dr. Morales. Please refer to his consult for full details. Of note, the patient's magnesium was noted to be low at 1.3 and the patient received 3 g of magnesium sulfate. Overnight, the patient was noted to have multiple PVCs on the monitor and has not had any further atrial fibrillation. The patient has known electrolyte abnormalities in the setting of heavy alcohol use. The patient reports that he drinks 4 to 6 beers a day and 2 vodkas or hard liquor. The patient was initially placed on beta-kathleen during this episode and then stopped. After the patient converted to sinus rhythm, the patient's heart rate has been in the 70s without any beta-kathleen and the patient was also scheduled to have a stress test today. Appreciate Dr. Morales's detailed evaluation. Please see his consult for full details. He recommended replacing the electrolytes; checking B12, folic acid, and supplementing with thiamine, folate , multivitamin. Also the patient was noted to have a high CHADS-VASc score of 3. 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 The patient has declined anticoagulation for now, understanding the risk and cardiology recommended restarting his aspirin 81 mg when agreeable by Surgery. I discussed with Dr. Harvey and Dr. Harvey is okay restarting him on the aspirin 81 mg today and at the time of discharge, the patient can restart his aspirin 81 mg. Cardiology also recommended for the patient to get an echocardiogram to evaluate LV function and a stress test to evaluate for ischemic heart disease. Today, the patient has declined his stress test as the patient reports that he understands the risks, has never had any chest pain or heart problems, understands that the stress test is to evaluate his heart function and to evaluate for any blockages that could be treated. 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 The patient also has had a transthoracic echocardiogram today, which showed that the ejection fraction was 55% to 60%, grade 2 diastolic dysfunction, mild aortic regurg. The patient wishes to go home today. The patient is to keep his Wren catheter until Friday and the patient has an appointment to see Dr. Harvey on Friday for catheter removal. LABS AT THE TIME OF DISCHARGE: Sodium 133, potassium 3.7, chloride 101, CO2 26 , BUN 17, creatinine 1.12, glucose noted to be 117. Please note the patient's creatinine was elevated at 1.34 this morning and the patient received hydration and post hydration, his creatinine improved to 1.12. In light of his recent procedure, the patient was advised to stop his lisinopril/hydrochlorothiazide for 1 day post discharge and he can restart it on Friday. B12 noted to be 898 , folate noted to be more than 20, TSH noted to be 1.35. MEDICATIONS AT THE TIME OF DISCHARGE: 1. Metformin 500 mg p.o. q.a.m. 2. Omeprazole 20 mg p.o. q.p.m. 3. Cialis as needed. 4. Mesalamine 2 tablets p.o. q.a.m. 5. Magnesium oxide 800 mg p.o. daily. 6. Lisinopril hydrochlorothiazide 05/22.5 one tablet p.o. q.a.m. The patient is to start this after a day and if his potassium continues to be lower, this can be switched to lisinopril without the hydrochlorothiazide. 7. Finasteride 5 mg p.o. q.a.m. 8. Vitamin D 2000 units p.o. q.a.m. 9. B12 1 tab p.o. weekly. INSTRUCTIONS: 1. The patient is to follow up with his PCP within a week. 2. The patient is to have a BMP and also check his magnesium again and check his potassium. 3. If the potassium is low, can possibly stop the hydrochlorothiazide and substitute per PCP discretion. 4. The patient is to come back to the hospital if he has any complaints of arrhythmia or chest pain. 5. The patient is to follow up with Dr. Morales as an outpatient in 2 weeks. CONDITION AT THE TIME OF DISCHARGE: Stable. DISPOSITION: Home. TIME SPENT: Total time spent on discharge is equal to 50 minutes. [id number]/CPS #: [id number] MTDD
== END 2019-08-26 15:00 | disposition home or self-care (01) ==
LOC: OR 05:53 → MEDTELE 11:42
PROVIDERS: ADMIT Urology; ATTEND Internal Medicine
DX: N21.0 Calculus in bladder (principal); N40.0 Benign prostatic hyperplasia without lower urinary tract symptoms; I48.91 Unspecified atrial fibrillation; I10 Essential (primary) hypertension; R73.03 Prediabetes; K51.90 Ulcerative colitis, unspecified, without complications; Z79.899 Other long term (current) drug therapy; R94.31 Abnormal electrocardiogram [ECG] [EKG]
CPT/HCPCS: 36415; 80048; 80053; 80076; 82365; 82607; 82746; 83735; 84425; 84443; 84484; 85025; 88300; 93005; 93306; 96372; A9270-GY; G0378; J0461; J0696; J1580; J1644; J1885; J1940; J2250; J2405; J2704; J2765; J3010; J3411; J3475